=== PATIENT | male | born 1985 | race American Indian/Alaskan Native ===

== ENCOUNTER 2024-04-12 13:06 | Emergency (ER) | payer SELFPAY ==
[2024-04-12 13:07] VITALS: BP 132/94
[2024-04-12 13:14] VITALS: BP 127/92
[2024-04-12 14:00] VITALS: BP 104/74
[2024-04-12] MEDS: VALIUM 5 MG PO (14:59)
[2024-04-12] MEDS: TORADOL 15 MG IV (14:59)
[2024-04-12 15:01] VITALS: BP 121/94
[2024-04-12 15:27] LABS: % Eosinophils 4.8 % (0-6); % Immature Granulocytes 0.3 % (0-0.5); % Lymphocytes 23.9 % (20.5-51.1); % Monocytes 8.5 % (1.7-9.3); % Neutrophils 61.5 % (42.2-75.2); Absolute Basophils 0.1 10^3/uL (0-0.2); Absolute Eosinophils 0.3 10^3/uL (0-0.7); Absolute Lymphocytes 1.6 10^3/uL (1.2-3.4); Absolute Monocytes 0.6 10^3/uL (0.1-0.6); Absolute Neutrophils 4.2 10^3/uL (1.4-6.5); Hematocrit 39.9 % (39.0-52.0); Mean Corp Hgb Conc. 35.1 g/dL (33.0-37.0); Mean Corpuscular Hgb 29.5 pg (27.0-31.0); Mean Platelet Volume 9.4 fL (7.4-10.4); Nucleated Red Blood Cells % 0 % (-); Platelet Count 232 10^3/uL (130-400); Red Blood Cell Count 4.75 10^6/uL (4.70-6.10); Red Cell Dist. Width 17.2 % (11.5-14.5); White Blood Cell Count 6.9 10^3/uL (4.8-10.8)
[2024-04-12 15:35] LABS: ALT (SGPT) 57 U/L (0-50); AST (SGOT) 103 U/L (17-59); Albumin 4.2 g/dl (3.5-5.0); Alkaline Phosphatase 126 U/L (38-126); Blood Urea Nitrogen 8 mg/dl (9-20); Calcium 9.2 mg/dl (8.4-10.2); Carbon Dioxide 25 mmol/L (22-30); Chloride 102 mmol/L (98-107); Glucose 93 mg/dl (70-99); Potassium 4.3 mmol/L (3.5-5.1); Sodium 139 mmol/L (135-145); Total Bilirubin 0.8 mg/dl (0.2-1.3); Total Protein 6.8 g/dl (6.3-8.2); eGFR > 60.00
--- NOTE | 2024-04-12 15:40 | ED.GENMED ---
History of Present Illness
General
Chief Complaint: Dizziness
Source: patient
Exam Limitations: none
Time Seen by Provider: 04/12/24 14:20
Nursing documentation reviewed up to this point in time: agreed with
History of Present Illness
History of Present Illness:
pt is a 38 y/o M with h/o htn, anxiety
he is from [facility], has been here for 9 months
about 3 mo ago started having left sided neck pain and some ldizziness, where he say she feels 'jittery'. he called his doctor in [facility] about a month ago and got a rx for vertin (which is an antihistime) thinking it was vertigo
he tried it for a week and had no improvement
so 2-3 weeks ago he got another rx for stugeron (which is a combination cinnarizine and benadryl)
he has not had any improvement so he stopped it after a week
he sys that he lifts heavy boxes at a [employer] where he works and does have increased pain with left shoulder movement and lifting. The pain is worse if he turns to the left side. He does not get a room spinning dizziness or feel off
balance. He has not had any vision changes, severe headache, vomiting, nausea, syncope. Patient has no pain into his arms or legs. No numbness tingling or weakness in his arms or legs. He cannot state why he came today versus any other day he
says he has no change to his symptoms today but he decided it was time to get looked at. He does not have insurance and does not have a doctor to see here. Patient does report that he drinks alcohol, but cut back to a few beers daily from whiskey
Past History
Past History
ED Past Medical History: HTN
ED Past Surgical History: None
Social History
Tobacco: Non-smoker
Alcohol: Daily
Drug: None
Personal: Single
Living: alone
Employment: Employed
Review of Systems
Review of Systems
Allergies reviewed?: Yes
All Other Systems: Not applicable
Phy Exam
Physical Exam
Physical Exam:
GENERAL: Alert , in no apparent distress
EYE: pupils equal and reactive
NECK: Supple but tender L trapezius which has spasm
full ROM intct
some pain with left lateral rotation
normal flex/extension
no midlline tendernes
ENT: o/p clr, mmm.
CARDIAC: Regular rate and rhythm .
LUNGS: Clear breath sounds bilaterally, no acute respiratory distress, no wheezes/rales/rhonchi
ABDOMEN: Soft, without focal tenderness, no r/g, no cvat, normal bowel sounds
NEUROLOGICAL: Alert and oriented, no focal neuro deficits, cn intact, strength and sensation intact, ambulating normal
SKIN: Warm and dry, skin intact.
MUSCULOSKELETAL: No edema, well perfused. neg jude's sign
PSYCH: Normal and appropriate interaction.
Course
Orders/Labs/Results
Orders:
Orders
04/12/24 14:37
Electrocardiogram (*1) Stat
Reason for Study: Other
Other Reason for Exam: neuro symptoms
CT Head W/o Iv Contrast Urgent
Comment:
Reason For Exam: dizziness, trouble concentrating
EKG- Treatment ONCE
Diazepam [Valium] 5 mg PO NOW STA
Ketorolac [Toradol] 15 mg IV NOW STA
CR Cervical Spine 2 or 3 Vw Urgent
Reason For Exam: neck pain 3 mo
04/12/24 15:00
Complete Blood Count/With Diff Urgent
Comprehensive Metabolic Panel Urgent
Abnormal Lab Results
04/12/24
15:00
RDW 17.2 H %
(11.5-14.5)
BUN 8 L mg/dl
(9-20)
Creatinine 0.6 L mg/dL
(0.7-1.3)
AST 103 H U/L
(17-59)
ALT 57 H U/L
(0-50)
04/12/24 15:00
04/12/24 15:00
Vital Signs
Initial and Last Documented VS:
Initial Vital Signs
Temp Pulse Resp BP Pulse Ox
99.0 F 91 16 132/94 98
04/12/24 13:07 04/12/24 13:07 04/12/24 13:07 04/12/24 13:07 04/12/24 13:07
Last Documented Vital Signs
Temp Pulse Resp BP Pulse Ox
99.0 F 92 18 116/85 99
04/12/24 13:07 04/12/24 15:21 04/12/24 15:21 04/12/24 17:20 04/12/24 17:30
MDM/Problems Addressed
Differential Diagnosis Includes:
cervical radiculopathy, muscle strain, anxiety, lightheadedness/near syncope, dehydration, stress, alcohol abuse
MDM/Problems Addressed:
38 y/o M
h/o htn
from [place] but lives here now
no insurance
here with L sided neck pain x 3 mo
no change today
also with occasional dizziness, says it is more feeling'jittery' and not room spinning or passing out sensation
doesn't get worse with turning head
he says he feels it ome on even sitting, sometimes standing, and it is not present currently
his pcp in [place] sent him 2 meds that treat vertigo without imprvoement
no stroke symptoms, headache, vision changes, wakness
on exam normal neuro
some tenderness L neck
no weakness
NEG YOLANDA HALLPIKE
ekg nonischemic, no arrhytjmia
ct head neg
cervical spine xray shows some DDD c5/c6 region
suspect he has some cervical radiculopathy or muscle spasms
the dizziness is not clear
guiven length of symptoms this makes dissection very unlikley
felt much better after valiumw hich coul potentioally treat both the trap spasm and the dizziness if BPV but not convinced it is BPV either
pt will f/u with [facility]
nsaids
valium
d/c home
PT COUNSELED ON ALCOHOL USE
*Critical Care Note
Total Time (30-74mins, 75-104mins- exclusive of procedures): Not Applicable
ED Attending Note
-
Portions of this chart may have been created with voice recognition software.� Occasional wrong word or��sound alike� substitutions may have occurred due to the inherent limitations of voice recognition software.
Discharge Plan
Departure
Patient Disposition: Home (Routine Discharge)
Date of Disposition: 04/12/24
Time of Disposition: 17:13
Patient with high blood pressure during this ER visit?: No
Condition: Fair
Covid-19: Not Applicable
Discharge Problem:
Trapezius muscle spasm, Cervical disc disease
Instructions: Dizziness, Nonvertigo, (DC), Degenerative Disc Disease ED
Prescriptions:
New
diazepam [Valium] 5 mg tablet
5 mg PO BID PRN (Reason: muscle spasm) Qty: 10 0RF
ibuprofen 800 mg tablet
800 mg PO Q8H PRN (Reason: Pain) Qty: 20 0RF
Referrals:
[facility]Outside] - Follow up in 5-7 days
NONE,* [Family Provider] -
Activity Restrictions/Additional Instructions:
Your pain is likely from your neck disc space narrowing that you have
we are not sure the cause of your dizziness
you should take motrin every 8 hours with food for 3-5 days to help with inflammation
then for muscle spasm and dizziness you should try valium 5 mg every 8-12 hours as needed.
return for severe pain, arm weakness, numbness, severe dizziness, blurry vision, passing out or any cocnerns.
Interventions
Interventions:
*Risk Screen - Suicide Last Done: 04/12/24 13:07
*Neglect/Abuse Screening Last Done: 04/12/24 13:07
Discharge Date and Time
Print Language: HAITIAN
[2024-04-12 17:20] VITALS: BP 116/85
== END 2024-04-12 17:30 | disposition home or self-care (01) ==
LOC: EMR 13:06
PROVIDERS: Physician Assistant; EMERGENCY PHYSICIAN Emergency Medicine
DX: M62.838 Other muscle spasm (principal); M50.30 Other cervical disc degeneration, unspecified cervical region; I10 Essential (primary) hypertension; F41.9 Anxiety disorder, unspecified
CPT/HCPCS: 96374; 99285; 70450; 72040; 80053; 85025; 93005